=== PATIENT | male | born 1965 | race Caucasian/White ===

== ENCOUNTER 2016-06-27 09:01 | Emergency (ER) | payer OTHER ==
[~2016-06-27] VITALS: Ht 172.7 cm; Wt 84.4 kg
[~2016-06-27 09:01] MED LIST: AMLO10TA2 PO; AMLO5TAB2 PO; HYDR12.53 PO; HYDR25TA6 PO; LOSA25TA2 PO; METO-95 PO; METO50TA82 PO; OMEP20CA9 PO; POTA10TA11 PO
[2016-06-27 09:03] VITALS: BP 133/79
[2016-06-27] MEDS ORDERED: LIDOCAINE 1%, 20ML ONE (09:48)
[2016-06-27] MEDS ORDERED: DIPH,PERTUSS(ACELL),TET VAC/PF 0.5 ML IM-VACC ONE ×2 (09:49→10:00)
[2016-06-27] MEDS ORDERED: LIDOCAINE 1%, 20ML SQ ONE (10:00)
== END 2016-06-27 11:04 | disposition home or self-care (01) ==
LOC: ED 09:13
DX: S61.011A Laceration without foreign body of right thumb without damage to nail, initial encounter (principal); S61.210A Laceration without foreign body of right index finger without damage to nail, initial encounter; I10 Essential (primary) hypertension; W45.8XXA Other foreign body or object entering through skin, initial encounter; Y93.89 Activity, other specified; Y92.89 Other specified places as the place of occurrence of the external cause; Y99.2 Volunteer activity
CPT/HCPCS: 12002; 90471; 90715; 96372; 99284; J3490

== ENCOUNTER 2016-07-06 14:28 | Emergency (ER) | payer OTHER ==
[~2016-07-06] VITALS: Ht 172.7 cm; Wt 86.0 kg
[2016-07-06 14:33] VITALS: BP 146/90
== END 2016-07-06 15:17 | disposition home or self-care (01) ==
LOC: ED 14:52
DX: S61.211D Laceration without foreign body of left index finger without damage to nail, subsequent encounter (principal); I10 Essential (primary) hypertension; X58.XXXD Exposure to other specified factors, subsequent encounter; Y92.89 Other specified places as the place of occurrence of the external cause; Y99.8 Other external cause status
CPT/HCPCS: 99281

== ENCOUNTER 2018-06-24 20:23 | Emergency (ER) | payer OTHER ==
[~2018-06-24] VITALS: Ht 172.7 cm; Wt 82.1 kg
[~2018-06-24 20:23] MED LIST changes: +AMLO-150 PO; -AMLO10TA2 PO; +AMLO10TA8 PO; -AMLO5TAB2 PO; +HYDR12.517 PO; -HYDR12.53 PO
[2018-06-24] MEDS ORDERED: DIPHENHYDRAMINE 50 MG/ML, 1ML ONE (20:53)
[2018-06-24] MEDS ORDERED: METOCLOPRAMIDE 5 MG/ML, 2ML ONE (20:54)
[2018-06-24] MEDS ORDERED: METOCLOPRAMIDE 5 MG/ML, 2ML IVPush ONE (21:00)
[2018-06-24] MEDS ORDERED: DIPHENHYDRAMINE 50 MG/ML, 1ML IVPush ONE (21:00)
[2018-06-24 21:01] VITALS: BP 159/94
--- NOTE | 2018-06-24 21:09 | NUR ---
Pt reports intermitent right sided headaches, seen at urgent care, given steroids, states they are becoming more and more frequent.
--- NOTE | 2018-06-24 21:34 | NUR ---
Pt reports decreased pain, states he has not had an episode of "headpain" since medicated.
--- NOTE | 2018-06-24 21:47 | NUR ---
chart up for recheck
== END 2018-06-24 22:22 | disposition home or self-care (01) ==
LOC: ED 22:21
DX: G44.019 Episodic cluster headache, not intractable (principal); I10 Essential (primary) hypertension
CPT/HCPCS: 70450; 96374; 96375; 99284; J1200; J2765

== ENCOUNTER → 2020-03-03 | Outpatient (CLI) | payer OTHER ==
[~2020-03-03] MED LIST changes: +AMLO-211 PO; -AMLO10TA8 PO; +OMNIPAQUE 350 MG/ML, 100ML BOTTLE ONE
== END | disposition home or self-care (01) ==
LOC: CFH 08:28
PROVIDERS: ATTEND Internal Medicine Interventional Cardiology
DX: Z13.6 Encounter for screening for cardiovascular disorders (principal); I10 Essential (primary) hypertension; I35.1 Nonrheumatic aortic (valve) insufficiency; I72.9 Aneurysm of unspecified site; E78.5 Hyperlipidemia, unspecified
CPT/HCPCS: 71275; 75571; Q9967